=== PATIENT | female | born 1980 ===

== ENCOUNTER 2017-05-30 10:16 | Emergency (ER) | payer MEDICAID ==
[2017-05-30 10:25] VITALS: TEMP 98.4
[2017-05-30 10:27] VITALS: BP 131/89; PULSE 85; RESP 16; O2SAT 100
[2017-05-30 11:07] LABS: PH,URINE 8.5 (4.7-8.0); URINE BILIRUBIN NEGATIVE (NEGATIVE); URINE BLOOD NEGATIVE (NEGATIVE); URINE GLUCOSE (UA) NEGATIVE (NEGATIVE); URINE LEUKOCYTE ESTERASE NEGATIVE Leu/uL (NEGATIVE); URINE NITRATE NEGATIVE (NEGATIVE); URINE PROTEIN NEGATIVE mg/dL (<30 mg/dL); URINE UROBILINOGEN 0.2 E.U./dL (<1 E.U./dL)
[2017-05-30 11:10] LABS: URINE COLOR LIGHT YELLOW (YELLOW)
[2017-05-30 11:11] LABS: URINE APPEARANCE SL CLOUDY (CLEAR)
--- NOTE | 2017-05-30 11:53 | ED PDOC ---
Arrival/HPI - General Chief Complaint: Flu-like Symptoms Time Seen by Provider: 05/30/17 10:29 Historian: Patient - History of Present Illness Narrative History of Present Illness (Text): 05/30/17 11:46 36-year-old female presents today with URI symptoms since yesterday. Patient states she had subjective fevers at home. Patient states she took Tylenol yesterday but did not take any medications today for pain. Patient complaining of sore throat stuffiness nose and a cough with occasional yellow phlegm. Patient states her mother is sick with similar symptoms. Patient states she did not get her flu shot this year. patient denies dizziness or weakness. Denies abdominal pain. No nausea or vomiting. No other complaints. Time/Duration: Other (1 day) Symptom Onset: Gradual Symptom Course: Worsening Quality: Aching Severity Level: 3 Past Medical History - Provider Review Nursing Documentation Reviewed: Yes - Travel History Have you recently traveled outside [place] w/in the past 3 mons?: No - Infectious Disease Hx of Infectious Diseases: None - Psychiatric Hx Substance Use: No - Surgical History Hx Section: Yes (x1) - Anesthesia Hx Anesthesia: Yes Hx Anesthesia Reactions: No Family/Social History - Physician Review Nursing Documentation Reviewed: Yes Family/Social History: Unknown Family HX Smoking Status: Never Smoked Hx Alcohol Use: Yes Frequency of alcohol use: Socially Hx Substance Use: No Allergies/Home Meds Allergies/Adverse Reactions: Allergies No Known Allergies Allergy (Verified 05/30/17 10:23) Review of Systems - Review of Systems Constitutional: Fevers. absent: Fatigue ENT: Sore Throat, Sinus Congestion Respiratory: Cough Cardiovascular: absent: Chest Pain, Palpitations Gastrointestinal: absent: Abdominal Pain, Constipation, Diarrhea, Nausea, Vomiting Genitourinary Female: absent: Dysuria, Frequency, Hematuria Musculoskeletal: absent: Arthralgias Neurological: Headache. absent: Dizziness Psychiatric: absent: Anxiety, Depression Physical Exam Vital Signs Reviewed: Yes Vital Signs Temp Pulse Resp BP Pulse Ox 05/30/17 10:26 85 16 131/89 100 05/30/17 10:23 98.4 F Temperature: Afebrile Blood Pressure: Normal Pulse: Regular Respiratory Rate: Normal Appearance: Positive for: Well-Appearing, Non-Toxic, Comfortable Pain Distress: None Mental Status: Positive for: Alert and Oriented X 3 - Systems Exam Head: Present: Atraumatic Pupils: Present: PERRL Extroacular Muscles: Present: EOMI Conjunctiva: Present: Normal Ears: Present: Normal, NORMAL TM Mouth: Present: Moist Mucous Membranes. No: Drooling, Trismus Pharnyx: Present: Normal. No: ERYTHEMA, EXUDATE Nose (External): Present: Atraumatic Nose (Internal): Present: Normal Inspection, Clear Mucous Neck: Present: Normal Range of Motion Respiratory/Chest: Present: Clear to Auscultation, Good Air Exchange. No: Respiratory Distress, Accessory Muscle Use Cardiovascular: Present: Regular Rate and Rhythm, Normal S1, S2. No: Murmurs Abdomen: No: Tenderness, Rebound, Guarding Medical Decision Making ED Course and Treatment: 05/30/17 12:15 Patient is nontoxic well-appearing in no distress. Vital signs are stable. Chest x-ray: No infiltrate or effusion as read by the radiologist Rapid flu negative pt reassessment; pt non toxic well appearing; no distress. vitals stable. pt afebrile. will d/c home with zithromax. f/u with pmd. I advised follow up with primary care physician within the next 2 days. I advised increase fluids and return if symptoms worsen persist or if new symptoms develop. Patient verbalizes understanding of discharge instructions and need for immediate followup. all aspects of this case were discussed the attending of record. IMPRESSION; cough Motrin one tablet every 6 hours as needed for pain Zithromax one tablet once daily x4 days Increase fluids Followup with primary care physician the next 2 days Return if symptoms worsen persist or if new symptoms develop - Lab Interpretations Lab Results: Lab Results 05/30/17 10:55: Urine Color Light yellow, Urine Appearance Sl cloudy, Urine pH 8.5, Ur Specific Freeman 1.015, Urine Protein Negative, Urine Glucose (UA) Negative, Urine Ketones Negative, Urine Blood Negative, Urine Nitrate Negative, Urine Bilirubin Negative, Urine Urobilinogen 0.2, Ur Leukocyte Esterase Negative 05/30/17 10:42: Influenza Typ A,B (EIA) Negative for flu a/b - RAD Interpretation Radiology Orders: 05/30/17 10:29 CHEST TWO VIEWS (PA/LAT) [RAD] Stat - Medication Orders Current Medication Orders: Azithromycin (Zithromax) 500 mg PO STAT STA PRN Reason: Protocol Stop: 05/30/17 12:14 Ibuprofen (Motrin Tab) 600 mg PO STAT STA Stop: 05/30/17 12:14 Disposition/Present on Arrival - Present on Arrival Any Indicators Present on Arrival: No History of DVT/PE: No History of Uncontrolled Diabetes: No Urinary Catheter: No History of Decub. Ulcer: No History Surgical Site Infection Following: None - Disposition Have Diagnosis and Disposition been Completed?: Yes Diagnosis: Cough Disposition: HOME/ ROUTINE Disposition Time: 12:16 Patient Plan: Discharge Condition: GOOD Discharge Instructions (ExitCare): Acute Cough (ED) Additional Instructions: Motrin one tablet every 6 hours as needed for pain Zithromax one tablet once daily x4 days Increase fluids Followup with primary care physician the next 2 days Return if symptoms worsen persist or if new symptoms develop Prescriptions: Azithromycin [Zithromax] 250 mg PO DAILY #4 tab Ibuprofen [Motrin] 600 mg PO Q6H PRN #20 tab PRN Reason: pain/fever reduction Referrals: Remi Conroy MD [Staff Provider] - [place] up [place] [facility] [place] [facility] [place] - Follow up with primary Forms: [facility] (Indonesian), SCHOOL NOTE, WORK NOTE
== END 2017-05-30 12:34 | disposition home or self-care (01) ==
LOC: ED 10:16
DX: R05 Cough (principal)